=== PATIENT | male | born 1985 | race African-American/Black ===

== ENCOUNTER 2017-08-23 17:50 | Emergency (ER) | payer SELFPAY ==
[2017-08-23] MEDS ORDERED: predniSONE 20 MG TAB ONE (21:22)
== END 2017-08-23 21:40 | disposition home or self-care (01) ==
LOC: ERS 17:50
DX: J45.901 Unspecified asthma with (acute) exacerbation (principal); J11.1 Influenza due to unidentified influenza virus with other respiratory manifestations; Z71.6 Tobacco abuse counseling; Z79.899 Other long term (current) drug therapy
CPT/HCPCS: 94640; 99406; J7506; J7620

== ENCOUNTER 2018-09-29 21:05 | Observation (INO) | payer OTHER, SELFPAY ==
[2018-09-29] MEDS ORDERED: Dexamethasone 4 mg/ml Vial ONE (21:22)
[2018-09-29 23:49] LABS: #Basophils 0.1 thou/uL (0.0-0.2); #Eosinphils 0.2 thou/uL (0.0-0.7); #Lymphocytes 2.4 thou/uL (1.20-3.40); #Monocytes 0.6 thou/uL (0.11-0.59); #Neutrophils 3.2 thou/uL (1.40-6.50); %Basophils 1.2 % (0.0-1.0); %Eosinophils 2.8 % (0.0-10.0); %Lymphocytes 36.6 % (21.0-51.0); %Monocytes 9.6 % (0.0-10.0); %Neutrophils 49.9 % (42.0-75.0); Hemoglobin 15.4 g/dL (14.0-18.0); Mean Corpuscular HGB CONC 33.3 g/dL (32.0-36.0); Mean Corpuscular Hemoglobin 33.2 pg (27.0-31.0); Mean Corpuscular Volume 99.7 fL (78.0-98.0); Mean Platelet Volume 8.1 fL (7.4-10.4); Platelet Count 232 thou/uL (130-400); RBC Distribution Width 11.3 % (11.5-14.5); Red Blood Cell (RBC) Count 4.65 mill/uL (4.70-6.10); White Blood Cell (WBC) Count 6.5 thou/uL (4.8-10.8)
[2018-09-29 23:58] LABS: Anion Gap 14 mmol/L (10-20); BUN (Urea Nitrogen) 20 mg/dL (8.9-20.6); Calc. Creatinine Clearance 0 mL/min (70-130); Calcium 9.2 mg/dL (7.8-10.44); Carbon Dioxide 25 mmol/L (22-29); Chloride 108 mmol/L (98-107); Estimated GFR-MDRD 84; Glucose 114 mg/dL (70-105); Potassium 3.3 mmol/L (3.5-5.1); Sodium 144 mmol/L (136-145)
--- NOTE | 2018-09-30 00:04 | RAD ---
CHEST ONE VIEW: 09/29/18 HISTORY: Dyspnea. Heart size is normal. The lungs are clear. No pneumonia, edema, pleural effusion or other acute proce ss. IMPRESSION: No acute intrathoracic disease. POS: [facility]
[2018-09-30] MEDS ORDERED: Albuterol Sulfate 2.5 mg/3 ml Neb NEB PRN ×2 (00:19→12:30)
[2018-09-30] MEDS ORDERED: Acetaminophen 325 MG TAB PO PRN (00:21)
[2018-09-30] MEDS ORDERED: Ondansetron ODT 4 MG TAB PO PRN (00:21)
[2018-09-30] MEDS ORDERED: Ondansetron PF 4 MG/2 ML Vial IVP PRN (00:21)
[2018-09-30 00:58] VITALS: BMI 27.3
[2018-09-30] MEDS: Albuterol Sulfate 2.5 mg/3 ml Neb NEB SCH ×6 (01:47→21:34)
--- NOTE | 2018-09-30 02:14 | HP ---
PRIMARY CARE DOCTOR: The patient does not recall the name. CODE STATUS: Full code. TIME OF EVALUATION: 1130 hours. CHIEF COMPLAINT: Shortness of breath. HISTORY OF PRESENT ILLNESS: This is a 33 years old male patient with past medical history of asthma, came to the hospital after having severe shortness of breath. The symptoms started when he was at work around noon with no prior triggers. No alleviating factors. Received several nebs in the ER with significant improvement, but the patient's saturations still dropped to the 80s and he gets very short of breath when he walks a few steps. REVIEW OF SYSTEMS: CONSTITUTIONAL: No fever, chills, or generalized weakness. RESPIRATORY: The patient has cough. No sputum production, shortness of breath. CARDIOVASCULAR: No chest pain or palpitation. GASTROINTESTINAL: No nausea, no vomiting, diarrhea, or abdominal pain. WELLNESS SPECIALIST: No dizziness, headache or feeling lightheaded. GENITOURINARY: No burning on urination. EXTREMITIES: No leg swelling. All other systems were reviewed and negative except for the findings mentioned above. PAST MEDICAL HISTORY: Positive for asthma and hypertension. PAST SURGICAL HISTORY: No surgical history. PSYCH HISTORY: No psych history. FAMILY HISTORY:Reviewed and non contributory to current presentation SOCIAL HISTORY: The patient smokes on a daily basis half a pack per day. No drugs. Lives at home with family. No alcohol. ALLERGIES: NO KNOWN DRUG ALLERGIES REPORTED. MEDICATIONS: Albuterol. PHYSICAL EXAMINATION: VITAL SIGNS: On presentation, blood pressure 148/75, heart rate 100, respiratory rate was 20, temperature 99.1, pain was 8/10. Oxygen saturation was 91 on room air. GENERAL APPEARANCE: The patient is alert, oriented, in no acute distress. HEENT: Eyes, normal conjunctivae. Moist oral mucosa. Anicteric. No JVD. RESPIRATORY: Bilateral air entry is decreased. The patient has bilateral wheezing. No rales. Symmetric expansion. CARDIOVASCULAR: Normal rate, regular rhythm. No murmurs, no gallop. No edema. ABDOMEN: Soft. Normal bowel sounds. MUSCULOSKELETAL: Baseline range of motion and strength. No tenderness. SKIN: Warm, intact. No pallor, no rash, no redness. VASCULAR: Peripheral pulses are present. Capillary refill seems to be intact. Neurologic: No evidence of any new focal weakness. Baseline speech. Cranial nerves seems to be intact. PSYCH: The patient is in good mood. No anxiety. Optimal judgment. DIAGNOSTIC DATA: Chest x-ray was reviewed. The patient has no acute intrathoracic disease. LABORATORY DATA: Labs were reviewed. White count 6.5, hemoglobin 15.4, MCV 99.7, platelet count 232. Chemistry; sodium 144, potassium 3.3, chloride 108, carbon dioxide 25, anion gap 14, BUN 20, creatinine 1.72, GFR 84, glucose 114. ASSESSMENT/PLAN: The patient will be placed in the hospital with following medical problems: 1. He has severe asthma attack. The patient had slight improvement and is still having hypoxia with few steps. We will continue the patient on nebulizers and Solu-Medrol, likely to be able to discharge in the morning. 2. Acute hypoxic respiratory failure. The patient has been improving, but still hypoxic when he stands up from bed . 3. Uncontrolled hypertension. The patient presented with systolic blood pressure of 148, hypertensive, we will reconcile home medications. We will adjust treatment as needed. 4. Deep venous thrombosis prophylaxis. Job ID: [id number] [facility]ITALChucky
[2018-09-30 06:58] LABS: #Lymphocytes 0.5 thou/uL (1.20-3.40); #Monocytes 0.1 thou/uL (0.11-0.59); #Neutrophils 5.1 thou/uL (1.40-6.50); %Eosinophils 0.2 % (0.0-10.0); %Lymphocytes 8.9 % (21.0-51.0); %Monocytes 0.9 % (0.0-10.0); %Neutrophils 90.1 % (42.0-75.0); Hemoglobin 15.5 g/dL (14.0-18.0); Mean Corpuscular HGB CONC 33.2 g/dL (32.0-36.0); Mean Corpuscular Hemoglobin 33.3 pg (27.0-31.0); Mean Platelet Volume 8.3 fL (7.4-10.4); Platelet Count 232 thou/uL (130-400); RBC Distribution Width 11.2 % (11.5-14.5); Red Blood Cell (RBC) Count 4.65 mill/uL (4.70-6.10); White Blood Cell (WBC) Count 5.7 thou/uL (4.8-10.8)
[2018-09-30 07:17] LABS: Anion Gap 10 mmol/L (10-20); BUN (Urea Nitrogen) 17 mg/dL (8.9-20.6); Calc. Creatinine Clearance 113 mL/min (70-130); Calcium 9.4 mg/dL (7.8-10.44); Carbon Dioxide 26 mmol/L (22-29); Chloride 107 mmol/L (98-107); Estimated GFR-MDRD Greater than 90; Glucose 157 mg/dL (70-105); Potassium 4.1 mmol/L (3.5-5.1); Sodium 139 mmol/L (136-145)
[2018-09-30] MEDS ORDERED: Enoxaparin Sodium 40 MG/0.4 ML SYRINGE SC SCH (09:00)
[2018-09-30] MEDS ORDERED: guaiFENesin ER 600 MG TAB PO SCH (13:30)
--- NOTE | 2018-09-30 15:52 | PDOC.PN ---
- Subjective Encounter Start Date: 09/30/18 Encounter Start Time: 13:00 Patient seen and examined for Asthma exacerbation. Still has significant wheezing and SOB. O2 sats improving. No new complaints. No overnight events - Objective Resuscitation Status - Order Detail: 09/30/18 00:21 Resuscitation Status Routine Resuscitation Status: FULL: Full Resuscitation MAR Reviewed: Yes Vital Signs & Weight: Vital Signs (12 hours) Temp Pulse Resp BP Pulse Ox 09/30/18 11:25 98.3 F 82 18 110/64 93 L 09/30/18 07:57 98.0 F 88 18 104/75 94 L 09/30/18 07:56 75 16 94 L 09/30/18 04:21 98.0 F 90 16 95/56 L 92 L Weight Weight 179 lb 8 oz I&O: 09/29/18 09/30/18 10/01/18 06:59 06:59 06:59 Intake Total 411 1500 Balance 411 1500 Result Diagrams: 09/30/18 06:10 09/30/18 06:10 Phys Exam - Physical Examination Constitutional: NAD Respiratory: no wheezing, no rhonchi Cardiovascular: RRR, no rub Gastrointestinal: soft, non-tender, positive bowel sounds Musculoskeletal: no edema Neurological: moves all 4 limbs Dx/Plan (1) Asthma exacerbation Code(s): J45.901 - UNSPECIFIED ASTHMA WITH (ACUTE) EXACERBATION Status: Acute Qualifiers: Asthma severity: moderate Asthma persistence: persistent Qualified Code(s ): J45.41 - Moderate persistent asthma with (acute) exacerbation (2) Acute hypoxemic respiratory failure Code(s): J96.01 - ACUTE RESPIRATORY FAILURE WITH HYPOXIA Status: Acute (3) HTN (hypertension) Code(s): I10 - ESSENTIAL (PRIMARY) HYPERTENSION Status: Chronic (4) Hypokalemia Code(s): E87.6 - HYPOKALEMIA Status: Acute - Plan cont current plan of care, plan discussed w/ family, DVT proph w/SCDs Cont IV steroids, Change Nebs to Q4 -: Add Pepcid -: Probably dc in AM if stable -: Resume Amlodipine Review of Systems - Review of Systems Respiratory: Shortness of Breath, Wheezing. negative: Cough, Dry, Hemoptysis, SOB with Excertion, Pleuritic Pain, Sputum Cardiovascular: negative: chest pain, palpitations, orthopnea, paroxysmal nocturnal dyspnea, edema, light headedness, other - Medications/Allergies Allergies/Adverse Reactions: Allergies Allergy/AdvReac Type Severity Reaction Status Date / Time No Known Drug Allergies Allergy Verified 09/30/18 00:39 Medications: Current Medications Acetaminophen (Tylenol) 650 mg PO Q4H PRN PRN Reason: Headache/Fever/Mild Pain (1-3) Albuterol Sulfate (Ventolin) 2.5 mg NEB [id number] DEBRA Albuterol Sulfate (Ventolin) 2.5 mg NEB [id number] PRN PRN Reason: Wheezing Famotidine (Pepcid) 20 mg PO BID DEBRA Guaifenesin (Mucinex) 600 mg PO Q12HR [facility] Methylprednisolone Sodium Succinate (Solu-Medrol) 40 mg IVP Q6HR [facility] Last Admin: 09/30/18 12:01 Dose: 40 mg Ondansetron HCl (Zofran Odt) 4 mg PO Q6H PRN PRN Reason: Nausea/Vomiting Ondansetron HCl (Zofran) 4 mg IVP Q6H PRN PRN Reason: Nausea/Vomiting Sodium Chloride (Flush - Normal Saline) 10 ml IVF PRN PRN PRN Reason: Saline Flush Last Admin: 09/30/18 05:00 Dose: 10 ml
[2018-09-30] MEDS: Famotidine 20 MG TAB PO SCH (20:14)
[2018-09-30] MEDS: guaiFENesin ER 600 MG TAB PO SCH (20:15)
[2018-10-01] MEDS: Albuterol Sulfate 2.5 mg/3 ml Neb NEB SCH (07:07)
[2018-10-01] MEDS: Famotidine 20 MG TAB PO SCH (08:20)
[2018-10-01] MEDS: guaiFENesin ER 600 MG TAB PO SCH (08:20)
[2018-10-01 08:34] VITALS: BP 122/72; TEMP 98.7
[2018-10-01] MEDS ORDERED: Amlodipine 5 MG TAB PO SCH (09:00)
--- NOTE | 2018-10-01 10:32 | DIS ---
DATE OF ADMISSION: 09/29/2018 DATE OF DISCHARGE: 10/01/2018 DISCHARGE DISPOSITION: Home. FOLLOWUP: Follow up with primary care physician at [facility], Dr. Castaneda. DISCHARGE MEDICATIONS: 1. Prednisone taper. 2. Flovent HFA 110 mcg inhalation b.i.d. 3. Pepcid 20 mg b.i.d. for next 10 days. 4. Mucinex 600 mg twice a day. 5. Albuterol inhaler as needed. 6. Amlodipine 5 mg daily. BRIEF HOSPITAL COURSE: The patient is a 33-year-old male with moderately persistent asthma, presented to the emergency room with shortness of breath and wheezing. Please note that the patient discontinued taking Breo, which was started by his primary care physician, due to concern of side effects. He was admitted with a diagnosis of acute asthma exacerbation. He dropped his O2 saturations to 70 in the emergency room, requiring hospitalization. He showed good improvement with steroids, antibiotics, and O2 supplementation. He is on room air. There is no wheezing noted on the day of discharge. He will be also started on inhaled corticosteroids. The patient was agreeable to this. FINAL DIAGNOSES: 1. Acute asthma exacerbation. 2. Acute hypoxic respiratory failure secondary to #1. 3. Hypertension. 4. Hypokalemia with potassium 3.3, replaced. His potassium improved to 4.1. 5. History of moderately persistent asthma. PLAN: Plan of care was discussed with the patient in detail. He stated understanding. Job ID: [id number]
== END 2018-10-01 10:59 | disposition home or self-care (01) ==
LOC: ERS 21:05 → T4-B 23:29
PROVIDERS: ADMIT Hospitalist; ATTEND Hospitalist
DX: J45.901 Unspecified asthma with (acute) exacerbation (principal); J96.01 Acute respiratory failure with hypoxia; E87.6 Hypokalemia; I10 Essential (primary) hypertension; F17.210 Nicotine dependence, cigarettes, uncomplicated; Z79.51 Long term (current) use of inhaled steroids; Z79.52 Long term (current) use of systemic steroids; Z79.899 Other long term (current) drug therapy
CPT/HCPCS: 36415; 71045; 80048; 85025; 94640; 96372; 96374; 96375; 96376; G0378; J1100; J1650; J2920; J7611; J7620

== ENCOUNTER 2019-01-07 23:03 | Emergency (ER) | payer OTHER | END 2019-01-07 23:36 | disposition home or self-care (01) | LOC: ERS 23:03 | DX: S61.216A Laceration without foreign body of right little finger without damage to nail, initial encounter (principal); I10 Essential (primary) hypertension; J45.909 Unspecified asthma, uncomplicated; F17.210 Nicotine dependence, cigarettes, uncomplicated; W25.XXXA Contact with sharp glass, initial encounter | CPT/HCPCS: 12001 ==

== ENCOUNTER 2020-09-25 12:18 | Emergency (ER) | payer OTHER ==
[2020-09-25] MEDS ORDERED: Morphine 4 MG/ML VIAL ONE (13:15)
[2020-09-25] MEDS ORDERED: Ketorolac Tromethamine 30 MG/ML VIAL ONE (13:15)
[2020-09-25] MEDS ORDERED: Ondansetron PF 4 MG/2 ML Vial ONE (13:15)
== END 2020-09-25 14:25 | disposition home or self-care (01) ==
LOC: ERS 12:18
DX: S82.832A Other fracture of upper and lower end of left fibula, initial encounter for closed fracture (principal); I10 Essential (primary) hypertension; F17.210 Nicotine dependence, cigarettes, uncomplicated; J45.909 Unspecified asthma, uncomplicated; X58.XXXA Exposure to other specified factors, initial encounter
CPT/HCPCS: 96374; J1885; J2270; J2405